=== PATIENT | male | born 1980 | race Caucasian/White ===

== ENCOUNTER 2024-01-11 14:35 | Emergency (ER) | payer BC, SELFPAY ==
[2024-01-11 14:37] VITALS: BP 159/97
[2024-01-11 14:53] LABS: % Basophils 0.5 % (0-2); % Eosinophils 1.7 % (0-6); % Immature Granulocytes 0.2 % (0-0.5); % Lymphocytes 17.2 % (20.5-51.1); % Monocytes 8.2 % (1.7-9.3); % Neutrophils 72.2 % (42.2-75.2); Absolute Eosinophils 0.1 10^3/uL (0-0.7); Absolute Lymphocytes 1.4 10^3/uL (1.2-3.4); Absolute Monocytes 0.7 10^3/uL (0.1-0.6); Absolute Neutrophils 5.8 10^3/uL (1.4-6.5); Hematocrit 41.6 % (39.0-52.0); Hemoglobin 14.8 g/dL (13.0-18.0); Mean Corp Hgb Conc. 35.6 g/dL (33.0-37.0); Mean Corpuscular Hgb 31.4 pg (27.0-31.0); Mean Corpuscular Volume 88.1 fL (80.0-94.0); Nucleated Red Blood Cells % 0 % (-); Platelet Count 236 10^3/uL (130-400); Red Blood Cell Count 4.72 10^6/uL (4.70-6.10)
[2024-01-11 15:11] LABS: ALT (SGPT) 61 U/L (0-50); AST (SGOT) 40 U/L (17-59); Albumin 5.3 g/dl (3.5-5.0); Alkaline Phosphatase 70 U/L (38-126); Blood Urea Nitrogen 12 mg/dl (9-20); Carbon Dioxide 25 mmol/L (22-30); Chloride 98 mmol/L (98-107); Glucose 101 mg/dl (70-99); Potassium 3.7 mmol/L (3.5-5.1); Sodium 134 mmol/L (135-145); Total Protein 7.5 g/dl (6.3-8.2); eGFR > 60.00
--- NOTE | 2024-01-11 16:56 | ED.GENMED ---
History of Present Illness
General
Chief Complaint: Abdominal Pain
Source: patient
Exam Limitations: none
Time Seen by Provider: 01/11/24 15:50
Nursing documentation reviewed up to this point in time: agreed with
History of Present Illness
History of Present Illness:
43 y/o M
h/o htn, hld
Has felt a lump in the region of his left groin for the last couple of months which is not really giving him any discomfort until the last 4 days. He does work as a contractor. He said it felt for in that region starting about 5 days ago. He has
occasional episodes where he feels an achiness. He is not feeling a bulging or firmness in that area. He is not having radiation into his scrotum. His testicles are not enlarged, he is having no you trouble urinating and no trouble moving his
bowels, he has no nausea vomiting or diarrhea. Patient went to urgent care yesterday and was told to follow-up with his doctor today. Today his physician thought he had a hernia and sent him in. Patient has never had an evaluation for this
before. Patient says it previously felt like a burning pain/numbness but now was more of an ache.
no urinary sympoms, no fevers, no lymph nodes, no vomiting, eating and drinking normally
nothing taken for pain
Past History
Past History
ED Past Medical History: HTN and Hypercholesterolemia
Social History
Tobacco: Non-smoker
Alcohol: Occasional
Drug: None
Personal:
Review of Systems
Review of Systems
Allergies reviewed?: Yes
All Other Systems: Not applicable
Phy Exam
Physical Exam
Physical Exam:
GENERAL: Alert , in no apparent distress
EYE: pupils equal and reactive
NECK: Supple
ENT: o/p clr, mmm.
CARDIAC: Regular rate and rhythm .
LUNGS: Clear breath sounds bilaterally, no acute respiratory distress, no wheezes/rales/rhonchi
ABDOMEN: Soft, without focal tenderness, no r/g, no cvat, normal bowel sounds
: normal inspection, no obvious bulging/masses
inguinal ring region slight discomfort bu tno fullness
no obvious direct or indirect hernia
testicles normal
scrotum not swollen
normal pulse femoral
NEUROLOGICAL: Alert and oriented, no focal neuro deficits
SKIN: Warm and dry, skin intact.
MUSCULOSKELETAL: No edema, well perfused. neg dena's sign
PSYCH: Normal and appropriate interaction.
Course
Orders/Labs/Results
Orders:
Orders
01/11/24
US Groin (Imaging Only) LT Urgent
Reason For Exam: PAIN,EVAL FOR HERNIA
01/11/24 14:45
CBC/With Diff [Complete Blood Count/With Diff] Urgent
CMP [Comprehensive Metabolic Panel] Urgent
01/11/24 16:22
Scrotum US [US Scrotum] Urgent
Comment:
Reason For Exam: eval for hernia L inguinal, doppler to testicle
01/11/24 17:12
Urinalysis Reflex To Culture Urgent
Date Specimen was Collected: 01/11/24
Time Specimen was Collected: 16:58
01/11/24 18:06
Ibuprofen [Motrin] 600 mg PO NOW STA
Abnormal Lab Results
01/11/24 01/11/24
14:45 17:12
MCH 31.4 H pg
(27.0-31.0)
RDW 15.0 H %
(11.5-14.5)
Absolute Monos (auto) 0.7 H 10^3/uL
(0.1-0.6)
Lymphocytes % 17.2 L %
(20.5-51.1)
Sodium 134 L mmol/L
(135-145)
Glucose 101 H mg/dl
(70-99)
ALT 61 H U/L
(0-50)
Albumin 5.3 H g/dl
(3.5-5.0)
Urine Ketones Trace A
(Negative)
01/11/24 14:45
01/11/24 14:45
Vital Signs
Initial and Last Documented VS:
Initial Vital Signs
Temp Pulse Resp BP Pulse Ox
99.4 F 85 16 159/97 98
01/11/24 14:37 01/11/24 14:37 01/11/24 14:37 01/11/24 14:37 01/11/24 14:37
Last Documented Vital Signs
Temp Pulse Resp BP Pulse Ox
99.4 F 77 18 143/94 99
01/11/24 14:37 01/11/24 18:20 01/11/24 18:20 01/11/24 18:20 01/11/24 18:20
MDM/Problems Addressed
Differential Diagnosis Includes:
hernia, inguinal strain, DJD/radiciulpathy/msk pain
MDM/Problems Addressed:
43 y/o M with no sig pmh
hs had a few months of a burning/numbness pain in his L groin, nonraditing, not really coming from back; very minimal and pt still highly functional
then the past few days he felt like it was swollen there with more of an ache after working
works in construction
went to PCP who thought maybe hernia so she sent him for eval
eating/drinking well, peeing normally
no radiation of pain down leg
no fever/chills
well appearing very comfortable minimalt enderness L inguinal ring region spurapubic
no appreciated masses
normal scrotal exam
normal penis exam
back nontender
full rom
no cauda equina
labs and urine appreciated, no acute issules
scrotal us shows some PORFIRIO and possibly bursitis L inguinal region
d/w dr. rodriguez
nsaids, f/u pcp --> ortho/may need MRI
*Critical Care Note
Total Time (30-74mins, 75-104mins- exclusive of procedures): Not Applicable
ED Attending Note
-
Portions of this chart may have been created with voice recognition software.� Occasional wrong word or��sound alike� substitutions may have occurred due to the inherent limitations of voice recognition software.
Discharge Plan
Departure
Patient Disposition: Home (Routine Discharge)
Date of Disposition: 01/11/24
Time of Disposition: 18:03
Patient with high blood pressure during this ER visit?: Yes
Condition: Fair
Covid-19: Not Applicable
Discharge Problem:
Groin pain
Instructions: Musculoskeletal Pain
Prescriptions:
New
ibuprofen 600 mg tablet
600 mg PO Q8H PRN (Reason: Pain) Qty: 14 0RF
Referrals:
Jeniffer Oreilly MD [Family Provider] - Follow up in 2-3 days
Activity Restrictions/Additional Instructions:
YOUR ULTRASOUND SHOWED NORMAL TESTICLES
SMALL LYMPH NODES IN YOUR LEFT GROIN AND ALSO SOME POSSIBLE BURSITIS IN THAT REGION
TAKE MOTRIN 600 MG EVERY 8 HOURS WITH FOOD FOR 3-5 DAYS IN A ROW WITH FOOD
FOLLOW UP WITH YOUR DOCTOR
YOU MAY NEED MORE TESTS IF THIS CONTINUES
POSSIBLY MRI OF YOUR BACK OR CAT SCAN OF YOUR ABDOMEN
RETURN FOR: WEAKNESS IN TH ELEG, WORSE NUMBNESS, INCONTINENCE, INABILITY TO WALK, FEVER, CHILLS OR ANY COCNERNS.
Interventions
Interventions:
*Risk Screen - Suicide Last Done: 01/11/24 14:37
*General Assessment Last Done: 01/11/24 14:37
*Neglect/Abuse Screening Last Done: 01/11/24 14:37
ED- Fall Risk Assessment Last Done: 01/11/24 18:49
*Nursing Disposition Last Done: 01/11/24 18:49
BK-Vnxfob-Nhwpxqcqck Assessment Last Done: 01/11/24 17:10
Discharge Date and Time
Discharge Date/Time: 01/11/24 18:50
Print Language: [place]
[2024-01-11 17:28] LABS: Urine Albumin Negative (Neg - Trace); Urine Bilirubin Negative (Negative); Urine Character Clear (Clear); Urine Color Straw; Urine Glucose Negative (Negative); Urine Ketone Trace (Negative); Urine Leukocyte Negative (Negative); Urine Nitrite Negative (Negative); Urine Occult Blood Negative (Negative); Urine Specific Gravity 1.005 (<1.030); Urine Urobilinogen Negative (Neg - 1+)
[2024-01-11 18:20] VITALS: BP 143/94
[2024-01-11] MEDS: MOTRIN 600 MG PO (18:25)
== END 2024-01-11 18:50 | disposition home or self-care (01) ==
LOC: EMR 14:35
PROVIDERS: Emergency Medicine; Physician Assistant; EMERGENCY PHYSICIAN Emergency Medicine; FAMILY PHYSICIAN Student in an Organized Health Care Education/Training Program
DX: R10.30 Lower abdominal pain, unspecified (principal); R20.0 Anesthesia of skin; I10 Essential (primary) hypertension; E78.00 Pure hypercholesterolemia, unspecified
CPT/HCPCS: 99284; 76870; 76882; 80053; 81003; 85025; 93976

== ENCOUNTER → 2024-01-29 08:49 | Outpatient (REF) | payer BC, SELFPAY | LOC: HWRAD 08:49 | PROVIDERS: ATTENDING PHYSICIAN Internal Medicine | DX: R10.30 Lower abdominal pain, unspecified (principal); M54.2 Cervicalgia; R05.9 Cough, unspecified | CPT/HCPCS: 71046; 72040; 74177; Q9967 ==

== ENCOUNTER 2024-03-18 06:37 | Day surgery (SDC) | payer BC, SELFPAY ==
[2024-03-18] VITALS (9 sets, daily range): BP systolic 96–145; BP diastolic 54–92; BMI 25.1
[2024-03-18] MEDS: TYLENOL 1000 MG PO (07:52)
[2024-03-18] MEDS: NORMOSOL-R/PLASMALYTE-A 1000 IV (07:52)
--- NOTE | 2024-03-18 08:43 | W.SUR.PREOP ---
Pre-Operative Surgical Note
-
I have examined this patient prior to the performance of the scheduled procedure.
The patient's condition is unchanged from the time of the current History and
Physical and the patient is able to undergo the scheduled procedure.
--- NOTE | 2024-03-18 10:58 | W.IMMPOSTOP ---
Surgical Immed Post Op Note
-
Primary Surgeon: Todd De La Rosa MD
Assisting Surgeon: None
Pre-op Diagnosis: Left inguinal hernia
Post-op Diagnosis: Same
Procedure Performed: Laparoscopic left inguinal hernia repair with mesh (TEP approach)
Anesthesia Type: General
Specimen / Cultures: None
Estimated Blood Loss: 3 cc
Complications: None
Operative Findings: Moderately sized left indirect inguinal hernia. No direct or femoral defects. No cord lipoma. Large left Bard 3D max mid weight uncoated polypropylene mesh. No fixation.
--- NOTE | 2024-03-18 11:00 | OR.RPT ---
Operative Report
Operative Report
Patient Name: Saw Cortes
: 1980
Date of Operation: 03/18/2024
Preoperative Diagnosis: Reducible Inguinal hernia, left
Postoperative Diagnosis: Same
Procedure(s):
Laparoscopic Inguinal Hernia Repair, (TEP approach)
Surgeon(s):
Dr. De La Rosa
Equity Structurer(s):
None
Anesthesia: General
Estimated Blood Loss: 3 cc
Urine Output: None
Drains/Lines/Implants: Large 3D Max Bard Soft Mesh
Specimens: None
Indication for surgery: The patient has a history of groin pain and noted on exam to have a Left inguinal Hernia(s). Following review of therapeutic options they elected to undergo a minimally invasive repair.
Operative Findings: Moderately sized left indirect inguinal hernia. No direct or femoral defects. No cord lipoma. Large left Bard 3D max mid weight uncoated polypropylene mesh. No fixation.
Details of the operation:
After inducing general anesthesia and endotracheal intubation, the patient was prepped and draped in the supine position with both arms tucked. After infiltration with 0.25% Marcaine, a left periumbilical incision was made. Dissection was carried
down to the anterior sheath which was incised and the rectus muscle retracted laterally. An origin balloon was then inserted in through the posterior portion of the rectus into the preperitoneal space. This was insufflated under direct vision and
blunt dissection was therefore achieved in the preperitoneal space. The balloon was then removed and a 12mm Balloon trocar was placed. Two 5-mm ports were also placed in the midline below the camera port. Blunt dissection was used to dissect the
myopectineal orifice with care not to injure the epigastric vessels, gonadals or spermatic cord. Blunt dissection was used to identify the direct, indirect, and femoral spaces.
Left side:
The cord was inspected and an indirect hernia sac was noted and reduced.
There was no cord lipoma.
There was no weakness in the direct space floor.
There was no femoral herniation.
A large 3D max mesh was then placed into position and positioned into the appropriate area to cover all 3 defects. No tacks were used.
The area was then completely infiltrated with 20 cc of Marcaine (0.25%). The insufflation was slowly decreased and the mesh was assured to be in proper position with desufflation. Some intra-abdominal pneumoperitoneum was evacuated via a small
rent made in the posterior rectus sheath. The Shruti trocar site was also closed with 0 PDS suture in a [id number] fashion. The skin sites were all then closed with running subcuticular 4-0 Monocryl suture followed by dermabond. Inspection
of the scrotum revealed both testes to be in position. The patient returned to the recovery room in stable condition. Sponge and instrument counts were correct. No specimen sent to pathology
I was the attending physician and performed the procedure with no assistance. I was present for all portions of the case
Todd De La Rosa MD
[2024-03-18] MEDS: SUBLIMAZE 25 MCG IV ×2 (11:28→11:39)
== END 2024-03-18 13:15 | disposition home or self-care (01) ==
LOC: SDS 06:37
PROVIDERS: ATTENDING PHYSICIAN Surgery
DX: K40.90 Unilateral inguinal hernia, without obstruction or gangrene, not specified as recurrent (principal)
CPT/HCPCS: 49650; C1781